=== PATIENT | female | born 1995 | race Caucasian/White ===

== ENCOUNTER 2016-10-21 17:27 | Emergency (ER) | payer SELFPAY ==
[2016-10-21] MEDS ORDERED: SULFA/TRIMETH 800/160 (DS) TAB 1 EA TAB PO ONE (17:47)
--- NOTE | 2016-10-21 17:50 | ED.PDOC ---
History of Present Illness - General Time Seen by Provider: 10/21/16 17:47 Source: patient Exam Limitations: no limitations - History of Present Illness Initial Comments: the patient is a 20-year-old female presenting to the emergency room after having injured her toe while walking her large dog. She sustained a skin tear to the medial most distal aspect of the first digit of the right foot. She is able to move the toe and sensation appears grossly preserved. No other injuries. He was tachycardic on arrival. Estimated blood loss less than 1 or 2 cc. Timing/Duration: momentarily Severity: mild Improving Factors: immobilization Worsening Factors: movement Associated Symptoms: denies symptoms Home Medications: Ambulatory Orders Sulfamethoxazole-Trimethoprim [Bactrim Ds 800-160 mg] 1 tab PO BID #10 tab 10/21 Review of Systems - Review of Systems Constitutional: States: no symptoms reported EENTM: States: no symptoms reported Respiratory: States: no symptoms reported Cardiology: States: no symptoms reported Gastrointestinal/Abdominal: States: no symptoms reported Genitourinary: States: no symptoms reported Musculoskeletal: States: other - toe pain Skin: States: see HPI Neurological: States: no symptoms reported All other Systems: No Change from Baseline Physical Exam - Physical Exam General Appearance: Alert, Comfortable, No apparent distress Eye Exam: bilateral normal Ears, Nose, Throat: normal ENT inspection Neck: non-tender, full range of motion Respiratory: lungs clear, normal breath sounds, no respiratory distress Cardiovascular/Chest: normal peripheral pulses, no edema Peripheral Pulses: radial,right: 2+, radial,left: 2+, dorsalis pedis,right: 2+, dorsalis pedis,left: 2+ Extremity: normal range of motion, no pedal edema, no calf tenderness, normal capillary refill, other - see history of present illness Neurologic: alert, normal mood/affect, oriented x 3 Skin Exam: normal color - with the exception of the skin tear to the toe Progress - Progress Progress: 10/21/16 17:49 the patient is a 20-year-old female presenting secondary to a skin tear to the right first toe. Wound is cleaned with hydrogen peroxide. Steri- Strips were used to tack the skin back down. She was given a dose of Bactrim here. She'll be placed on Bactrim for 5 days. She needs to monitor for any evidence of infection. She needs to follow up with her primary care doctor before the weekend. ER warnings were given for any acute worsening. She appears neurovascularly intact at this time and tendon function appears appropriate. 10/21/16 17:50 Departure - Departure Clinical Impression: Tear of skin of plantar aspect of right foot Qualifiers: Encounter type: initial encounter Qualifier Code: (S91.311A) Laceration without foreign body, right foot, initial encounter Disposition: Discharge to Home or Self Care Condition: Good Diet: regular diet Activity: increase activity as tolerated Prescriptions: Sulfamethoxazole-Trimethoprim [Bactrim Ds 800-160 mg] 1 tab PO BID #10 tab Home Medications: Ambulatory Orders Sulfamethoxazole-Trimethoprim [Bactrim Ds 800-160 mg] 1 tab PO BID #10 tab 10/21 Additional Instructions: the patient is a 20-year-old female presenting secondary to a skin tear to the right first toe. Wound is cleaned with hydrogen peroxide. Steri- Strips were used to tack the skin back down. She was given a dose of Bactrim here. She'll be placed on Bactrim for 5 days. She needs to monitor for any evidence of infection. She needs to follow up with her primary care doctor before the weekend. ER warnings were given for any acute worsening. She appears neurovascularly intact at this time and tendon function appears appropriate.
[2016-10-21 18:41] VITALS: BP 116/82; TEMP 97.2; O2SAT 98
== END 2016-10-21 18:37 | disposition home or self-care (01) ==
LOC: ER 17:27
DX: S91.111A Laceration without foreign body of right great toe without damage to nail, initial encounter (principal); X58.XXXA Exposure to other specified factors, initial encounter; Y93.K1 Activity, walking an animal

== ENCOUNTER 2016-12-11 23:14 | Emergency (ER) | payer MEDICAID, SELFPAY ==
--- NOTE | 2016-12-12 00:14 | ED.PDOC ---
History of Present Illness - General Chief Complaint: Syncope/Near Syncope Stated Complaint: passed out twice Time Seen by Provider: 12/12/16 00:08 Source: patient Exam Limitations: no limitations - History of Present Illness Initial Comments: PT STATES SHE WAS TRYING TO PUT A NOSE RING IN UNSUCCESSFULLY, NO BLEEDING OR PAIN BUT WHEN SHE GOT UP FROM THE BATHROOM COUNTER SHE PASSED OUT. DOES NOT C/O PAIN, WITNESSES STATE SHE PASSED OUT TWICE BUT PT DOES NOT REMEMBER. 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 Denies: chest pain, edema, palpitations Gastrointestinal/Abdominal: Denies: abdominal pain, diarrhea, nausea, vomiting Genitourinary: States: no symptoms reported, other - PT STATES SHE DOESNT THINK SHE'S . Musculoskeletal: States: no symptoms reported Skin: Denies: no symptoms reported, change in color Neurological: Denies: anxiety, headache, numbness, weakness Endocrine: States: no symptoms reported Hematologic/Lymphatic: States: no symptoms reported Past Medical History (General) - Patient Medical History Hx Stroke: No Hx Congestive Heart Failure: No Hx Diabetes: No Hx MRSA: No Surgical History: other - Vaccination History Hx Tetanus, Diphtheria Vaccination: Yes Hx Influenza Vaccination: No Hx Pneumococcal Vaccination: No Immunizations Up to Date: Yes - Social History Hx Tobacco Use: Yes Cigarettes Packs Per Day: 1 Hx Alcohol Use: Yes - Female History Hx Last Menstrual Period: 12/12/16 Family Medical History - Family History Mother Family History: No Known Living Status: Still Living Physical Exam - Physical Exam General Appearance: Alert, No apparent distress Eye Exam: bilateral normal Ears, Nose, Throat: hearing grossly normal, normal ENT inspection Neck: non-tender, full range of motion, supple Respiratory: lungs clear, normal breath sounds, no respiratory distress, no accessory muscle use Cardiovascular/Chest: regular rate, rhythm, no murmur Gastrointestinal/Abdominal: normal bowel sounds, soft, no organomegaly, other - MILD TTP RLQ BUT DOES NOT APPEARS TENDER OVER MCBURNEY'S Back Exam: normal inspection, no CVA tenderness Extremity: normal range of motion, non-tender Neurologic: no motor/sensory deficits, alert, normal mood/affect Skin Exam: normal color, warm/dry Lymphatic: no adenopathy Departure - Departure Disposition: Discharge to Home or Self Care Departure Forms: ED Discharge - Pt. Copy, Patient Portal Self Enrollment Home Medications: Ambulatory Orders NK [NK] 12/11/16
[2016-12-12] MEDS ORDERED: SODIUM CHLORIDE 0.9% 1000ML 1,000 ML IVS ONE (01:35)
[2016-12-12 02:49] VITALS: BP 119/63; TEMP 98; O2SAT 99
== END 2016-12-12 02:55 | disposition home or self-care (01) ==
LOC: ER 23:14
DX: Z33.1 Pregnant state, incidental (principal); R55 Syncope and collapse; O99.331 Smoking (tobacco) complicating pregnancy, first trimester; F17.210 Nicotine dependence, cigarettes, uncomplicated; Z3A.00 Weeks of gestation of pregnancy not specified

== ENCOUNTER 2017-05-28 07:45 | Emergency (ER) | payer MEDICAID ==
[2017-05-28 08:04] VITALS: BP 118/83; TEMP 98.1; O2SAT 97
--- NOTE | 2017-05-28 08:05 | ED.PDOC ---
History of Present Illness - General Chief Complaint: Skin/Abrasion/Tear Stated Complaint: knot both sides chest Time Seen by Provider: 05/28/17 08:03 Source: patient Exam Limitations: no limitations - History of Present Illness Initial Comments: Mikki Coreas 21 y/o female staed for the last few days had been having bilateral pain side of rib.no palpitations no cough no sob.Presently 27 weeks Timing/Duration: other - 5 days ago Severity: moderate Location: torso Improving Factors: nothing Worsening Factors: nothing Associated Symptoms: denies symptoms Allergies/Adverse Reactions: Allergies NO KNOWN ALLERGY Allergy (Verified 05/28/17 08:10) Home Medications: Ambulatory Orders Vit W/ Ferrous Fumara [] 1 tab PO DAILY 05/28/17 Review of Systems - Review of Systems Constitutional: States: no symptoms reported EENTM: States: no symptoms reported Respiratory: States: see HPI Cardiology: States: no symptoms reported Gastrointestinal/Abdominal: States: no symptoms reported Genitourinary: States: no symptoms reported Past Medical History (General) - Patient Medical History Hx Stroke: No Hx Congestive Heart Failure: No Hx Diabetes: No Hx MRSA: No Surgical History: no surgical history - Vaccination History Hx Tetanus, Diphtheria Vaccination: Yes Hx Influenza Vaccination: No Hx Pneumococcal Vaccination: No - Social History Hx Tobacco Use: Yes Hx Alcohol Use: Yes - Activities of Daily Living Patient Lives Alone: No - family - Female History Hx Last Menstrual Period: 12/12/16 Patient : Yes - 27 weeks ega Family Medical History - Family History Mother Family History: No Known Living Status: Still Living Physical Exam - Physical Exam General Appearance: Alert, Comfortable, No apparent distress Eyes, Ears, Nose, Throat Exam: PERRL/EOMI, normal ENT inspection, TMs normal, pharynx normal Neck: non-tender, full range of motion, supple Cardiovascular/Chest: normal peripheral pulses, regular rate, rhythm, no edema, no murmur Respiratory: chest non-tender, lungs clear, other - tenderness lower rib cage bilaterally Gastrointestinal/Abdominal: normal bowel sounds, non tender, soft, other - gravid uterus heart beat-150 Back Exam: normal inspection, no CVA tenderness Extremity: normal range of motion, non-tender Neurologic: alert, normal mood/affect, oriented x 3 Skin Exam: warm/dry, normal color Departure - Departure Clinical Impression: Painful rib, with 27 completed weeks gestation Time of Disposition: 08:20 Disposition: Discharge to Home or Self Care Condition: Good Instructions: Common Discomforts and Bodily Changes During , Managing Symptoms of Home Medications: Ambulatory Orders Vit W/ Ferrous Fumara [] 1 tab PO DAILY 05/28/17 Additional Instructions: Continue with OB care;continue with vitamins Tylenol 500mg po every 6 hours as needed for pain
== END 2017-05-28 08:30 | disposition home or self-care (01) ==
LOC: ER 07:45
DX: O26.92 Pregnancy related conditions, unspecified, second trimester (principal); R07.81 Pleurodynia; Z3A.27 27 weeks gestation of pregnancy; Z87.891 Personal history of nicotine dependence

== ENCOUNTER 2017-10-03 19:37 | Emergency (ER) | payer OTHER ==
[2017-10-03 19:56] VITALS: BP 131/90; TEMP 101.5; O2SAT 95
[2017-10-03] MEDS ORDERED: ACETAMINOPHEN 500 MG TAB PO ONE (20:07)
--- NOTE | 2017-10-03 20:10 | ED.PDOC ---
History of Present Illness - General Chief Complaint: Respiratory Problem Stated Complaint: cough, fever, sore throat, sinus congestion Time Seen by Provider: 10/03/17 20:05 Source: patient Exam Limitations: no limitations - History of Present Illness Comments: THIS PATIENT COMES TO THE ED WITH A 24 HRS HX OF FEVER, NON PRODUCTIVE COUGH, HEADACHE, MALAISE, MYALGIAS. HER TESTED POSITIVE FOR INFLUENZA A. SHE TAKES NO MEDS AND SHE TAKES NO PRESCRIPTION MEDICATIONS. Timing/Duration: yesterday Cough Quality/Degree: dry cough Possible Cause: no prior episodes Worsening Factors: nothing Associated Symptoms: cough, facial pain, fever/chills, headache Respiratory Risk Factors: exposure to illness Allergies/Adverse Reactions: Allergies NO KNOWN ALLERGY Allergy (Verified 05/28/17 08:10) Home Medications: Ambulatory Orders Dextromethorphan-Guaifenesin [Delsym Cough + Chest Celestine 5-100 mg/5Ml] 10 ml PO BID #100 liq 10/03/17 Fexofenadine-Pseudoephedrine [Sharyn-D 12 Hour Allergy 60-120 mg] 1 tab PO BID #10 tab 10/03/17 Oseltamivir Capsule [Tamiflu] 75 mg PO BID #10 cap 10/03/17 Review of Systems - Review of Systems Constitutional: States: chills, fever, malaise EENTM: States: no symptoms reported, nose congestion, mouth pain Respiratory: States: cough, short of breath Cardiology: States: palpitations Gastrointestinal/Abdominal: States: no symptoms reported Genitourinary: States: no symptoms reported Musculoskeletal: States: muscle pain Skin: States: no symptoms reported Neurological: States: no symptoms reported Endocrine: States: no symptoms reported Hematologic/Lymphatic: States: no symptoms reported All other Systems: Reviewed and Negative Past Medical History (General) - Patient Medical History Hx Stroke: No Hx Congestive Heart Failure: No Hx Hypertension: No Hx Diabetes: No Hx MRSA: No Surgical History: no surgical history - Vaccination History Hx Tetanus, Diphtheria Vaccination: No Hx Influenza Vaccination: Yes Hx Pneumococcal Vaccination: No Immunizations Up to Date: Yes - Social History Hx Tobacco Use: Yes Hx Alcohol Use: No - Female History Hx Last Menstrual Period: 12/12/16 Patient : No Family Medical History - Family History Mother Family History: No Known Living Status: Still Living Physical Exam - Physical Exam General Appearance: Alert, Anxious Eye Exam: bilateral normal ENT Exam: nasal congestion, nasal drainage Neck: non-tender, full range of motion, supple, normal inspection Respiratory: chest non-tender, rhonchi Cardiovascular/Chest: normal peripheral pulses, no edema, no gallop, no JVD, no murmur, tachycardia Gastrointestinal/Abdominal: normal bowel sounds, non tender, soft, no organomegaly, no pulsatile mass Extremity: normal range of motion, non-tender, normal inspection Neurologic: alert, normal mood/affect, oriented x 3 Skin Exam: normal color Lymphatic: no adenopathy Progress - Results/Orders Results/Orders: THE LB IS REPORTED: INFLUENZA A IS POSITIVE AND RSS WAS NEGATIVE. Departure - Departure Clinical Impression: Influenza Time of Disposition: 20:21 Disposition: Discharge to Home or Self Care Condition: Fair Departure Forms: ED Discharge - Pt. Copy, Patient Portal Self Enrollment Instructions: Influenza Diet: resume usual diet Activity: increase activity as tolerated Prescriptions: Dextromethorphan-Guaifenesin [Delsym Cough + Chest Celestine 5-100 mg/5Ml] 10 ml PO BID #100 liq Fexofenadine-Pseudoephedrine [Sharyn-D 12 Hour Allergy 60-120 mg] 1 tab PO BID #10 tab Oseltamivir Capsule [Tamiflu] 75 mg PO BID #10 cap Home Medications: Ambulatory Orders Dextromethorphan-Guaifenesin [Delsym Cough + Chest Celestine 5-100 mg/5Ml] 10 ml PO BID #100 liq 10/03/17 Fexofenadine-Pseudoephedrine [Sharyn-D 12 Hour Allergy 60-120 mg] 1 tab PO BID #10 tab 10/03/17 Oseltamivir Capsule [Tamiflu] 75 mg PO BID #10 cap 10/03/17
== END 2017-10-03 20:33 | disposition home or self-care (01) ==
LOC: ER 19:37
DX: J11.1 Influenza due to unidentified influenza virus with other respiratory manifestations (principal); Z87.891 Personal history of nicotine dependence

== ENCOUNTER 2019-02-05 14:40 | Emergency (ER) | payer SELFPAY ==
[2019-02-05] MEDS ORDERED: LIDOCAINE 1% 10 ML VIAL INJ ONE (14:54)
[2019-02-05] MEDS ORDERED: CHLORHEXIDINE GLUCONATE 4 % 15 ML UD TOP ONE (14:54)
[2019-02-05] MEDS ORDERED: POVIDONE IODINE 10 % 15 ML UD TOP ONE (14:56)
--- NOTE | 2019-02-05 15:25 | RAD ---
EXAM DESCRIPTION: Toes,Right CLINICAL HISTORY: laceration to right third toe-stepped on glass COMPARISON: None. IMPRESSION: 3 views of the bilateral toes shows no acute fracture, focal bone destruction, or joint dislocation. No radiopaque foreign body seen in the soft tissues. Electronically signed by: Davidson Govea MD 02/05/2019 3:22 PM CDT
--- NOTE | 2019-02-05 15:42 | ED.PDOC ---
History of Present Illness - General Chief Complaint: Laceration Stated Complaint: laceration to toe Time Seen by Provider: 02/05/19 15:39 Source: patient Exam Limitations: no limitations - History of Present Illness Initial Comments: patient stepped on broken glass at home prior to arrival suffering a cut to her right middle toe. She had last tetanus 2 years ago with her last . She is otherwise healthy and has no medical problems and no other acute complaints. Timing/Duration: just prior to arrival Severity: mild Location: feet Improving Factors: nothing Worsening Factors: nothing Associated Symptoms: denies symptoms Allergies/Adverse Reactions: Allergies NO KNOWN ALLERGY Allergy (Verified 05/28/17 08:10) Home Medications: Ambulatory Orders NK 02/05/19 Review of Systems - Review of Systems Constitutional: States: no symptoms reported EENTM: States: no symptoms reported Respiratory: States: no symptoms reported Cardiology: States: no symptoms reported Gastrointestinal/Abdominal: States: no symptoms reported Skin: States: see HPI Past Medical History (General) - Patient Medical History Hx Stroke: No Hx Congestive Heart Failure: No Hx Hypertension: No Hx Diabetes: No Hx MRSA: No Surgical History: tonsillectomy - Vaccination History Hx Tetanus, Diphtheria Vaccination: No - unknown Hx Influenza Vaccination: No Hx Pneumococcal Vaccination: No - Social History Hx Tobacco Use: Yes Hx Alcohol Use: No - Female History Patient is a Female of Child Bearing Age (10 -59 yrs old): Yes - Irregular-has a Nexplanon implant Hx Last Menstrual Period: 12/12/16 Patient : No Hx Gestational Age: 27 Family Medical History - Family History Mother Family History: No Known Living Status: Still Living Physical Exam - Physical Exam General Appearance: Alert, Comfortable Eyes, Ears, Nose, Throat Exam: PERRL/EOMI Cardiovascular/Chest: normal peripheral pulses, regular rate, rhythm, no edema, no murmur Respiratory: chest non-tender, lungs clear, normal breath sounds Neurologic: alert, oriented x 3 Skin Exam: other - 2 cm laceration through subcutaneous tissue on middle toe plantar side Progress - Results/Orders Results/Orders: Patient Name: VIKTORIA ZAZUETA Gender: Female Date of : 1995 Referring Physician: LEXIE PRINCE Organization: 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 IMPRESSION: 3 views of the bilateral toes shows no acute fracture, focal bone destruction, or joint dislocation. No radiopaque foreign body seen in the soft tissues Procedures - Laceration/Wound Repair Right Toe Wound Length (cm): 2 Wound's Depth, Shape: superficial Wound Explored: no foreign body removed Irrigated w/ Saline (cc's): 50 Betadine Prep?: Yes Anesthesia: 1% Lidocaine Volume Anesthetic (cc's): 1.5 - 1 cc in digital block/.5 at site Wound Debrided: moderate Wound Repaired With: sutures Suture Size/Type: 4:0, nylon Number of Sutures: 3 Layer Closure?: No Departure - Departure Clinical Impression: Laceration Disposition: Discharge to Home or Self Care Condition: Good Departure Forms: ED Discharge - Pt. Copy, Patient Portal Self Enrollment Home Medications: Ambulatory Orders NK 02/05/19 Additional Instructions: follow up in clinic in 7-10 days for suture removal. Do not soak sutures but clean with warm soapy water BID. Return to ER/return to clinic for erythema, purulence, or temp >100.5.
[2019-02-05 15:57] VITALS: BP 122/73; TEMP 98.6; O2SAT 97
== END 2019-02-05 15:50 | disposition home or self-care (01) ==
LOC: ER 14:40
DX: S91.114A Laceration without foreign body of right lesser toe(s) without damage to nail, initial encounter (principal); W25.XXXA Contact with sharp glass, initial encounter; Y92.009 Unspecified place in unspecified non-institutional (private) residence as the place of occurrence of the external cause; Z87.891 Personal history of nicotine dependence

== ENCOUNTER 2020-03-12 14:39 | Emergency (ER) | payer OTHER ==
[2020-03-12] MEDS ORDERED: SODIUM CHLORIDE 0.9% 1000ML 1,000 ML IVS ONE (15:07)
[2020-03-12] MEDS ORDERED: ONDANSETRON INJ 4 MG/2 ML VIAL IV ONE (15:07)
[2020-03-12] MEDS ORDERED: DICYCLOMINE HCL INJ 20 MG/2 ML AMP IM ONE (15:07)
[2020-03-12] MEDS ORDERED: SODIUM CHLORIDE 0.9% (FLUSH) 10 ML SYG IV PRN (15:07)
--- NOTE | 2020-03-12 17:17 | ED.PDOC ---
History of Present Illness - General Chief Complaint: GI Problem Stated Complaint: N/V/D, abd pain, weakness Time Seen by Provider: 03/12/20 15:07 Information Source: patient, RN notes reviewed, Vital Signs reviewed Exam Limitations: no limitations - History of Present Illness Initial Comments: Patient is a 24-year-old white female who presents with complaints of abdominal pain, nausea, vomiting and diarrhea starting yesterday. It is constant and getting worse. She denies any hematemesis or hematochezia. Eating or drinking makes it worse. Nothing makes it better. It is severe in intensity. The pain is throbbing/cramping in nature. The pain is nonradiating. Abdominal Pain Onset Location: generalized abdomen Pain Radiation: no radiation Quality: severe, cramping, throbbing Timing/Duration: 7-24 hours Improving Factors: nothing Worsening Factors: eating Associated Symptoms: diarrhea, nausea/vomiting Review of Systems - Review of Systems Constitutional: States: see HPI, malaise, weakness. Denies: chills, fever EENTM: States: no symptoms reported Respiratory: States: no symptoms reported Cardiology: States: no symptoms reported. Denies: chest pain, palpitations, syncope Gastrointestinal/Abdominal: States: abdominal pain, diarrhea, nausea, vomiting Genitourinary: States: no symptoms reported Musculoskeletal: States: no symptoms reported. Denies: back pain Skin: States: no symptoms reported. Denies: change in color, rash Neurological: States: no symptoms reported Endocrine: States: no symptoms reported Hematologic/Lymphatic: States: no symptoms reported All other Systems: Reviewed and Negative Past Medical History (General) - Patient Medical History Hx Stroke: No Hx of COPD: No Hx Cardiac Disorders: No Hx Congestive Heart Failure: No Hx Hypertension: No Hx Diabetes: No Hx Cancer: No Hx MRSA: No Surgical History: tonsillectomy - Vaccination History Hx Tetanus, Diphtheria Vaccination: No Hx Influenza Vaccination: No Hx Pneumococcal Vaccination: No Immunizations Up to Date: No - Social History Hx Tobacco Use: Yes Hx Alcohol Use: Yes Hx Substance Use: No Hx Substance Use Treatment: No Hx Depression: No - Female History Patient is a Female of Child Bearing Age (10 -59 yrs old): Yes Hx Last Menstrual Period: 12/12/16 Patient : No - Denies Hx Gestational Age: 27 Family Medical History - Family History Mother Family History: No Known Living Status: Still Living Hx Family;Other: Maternal Grandmother - throat cancer Physical Exam - Physical Exam General Appearance: Alert, Anxious, Obvious distress, Well Developed, Well Groomed, Well Nourished Eyes, Ears, Nose, Throat Exam: PERRL/EOMI, normal ENT inspection, other - Dry mucous membranes Neck: non-tender, full range of motion, supple, normal inspection Respiratory: chest non-tender, lungs clear, normal breath sounds, no respiratory distress, no accessory muscle use Cardiovascular/Chest: normal peripheral pulses, regular rate, rhythm, no edema, no gallop Peripheral Pulses: No deficit Gastrointestinal/Abdominal: normal bowel sounds, soft, no organomegaly, no pulsatile mass, other - Generalized discomfort to palpation Back Exam: normal inspection, no CVA tenderness, no vertebral tenderness Extremity: normal range of motion, non-tender, normal inspection, no pedal edema, no calf tenderness 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 03/12/20 17:25 Patient is markedly improved after IV fluids and IM Bentyl and IV Zofran. Plan on discharge home with a prescription for Bentyl and Zofran. I discussed this plan of care with the patient and she voices understanding and agreement with the plan of care. Steve Reaves M.D. #[id number] - Results/Orders Results/Orders: 03/12/20 15:07 Sodium Chloride 0.9% (Flush) [Saline Flush Syringe] 10 ml IV PRN PRN URINALYSIS Stat Laboratory Results - last 24 hr 03/12/20 03/12/20 15:26 15:26 WBC 6.2 RBC 4.98 Hgb 14.9 Hct 44.4 MCV 89.1 MCH 30.0 MCHC 33.6 RDW 13.4 Plt Count 159 MPV 11.1 H Absolute Neuts (auto) 4.20 Absolute Lymphs (auto) 1.60 Absolute Monos (auto) 0.30 Absolute Eos (auto) 0.10 Absolute Basos (auto) 0.10 Neutrophils % 68.3 Lymphocytes % 25.5 Monocytes % 4.2 Eosinophils % 1.0 Basophils % 1.0 Sodium 138 Potassium 4.1 Chloride 107 Carbon Dioxide 23 Anion Gap 12.1 BUN 11 Creatinine 0.77 BUN/Creatinine Ratio 14.3 Random Glucose 94 Serum Osmolality 274.8 L Calcium 9.5 Total Bilirubin 1.3 H Direct Bilirubin 0.2 Indirect Bilirubin 1.1 H AST 20 ALT 13 Alkaline Phosphatase 56 Serum Total Protein 7.6 Albumin 4.4 Lipase 20 L Vital Signs 03/12/20 03/12/20 14:40 15:03 Temperature 9.8 F L Pulse Rate [ 97 H 97 H Pulse ox] Respiratory 16 Rate Blood Pressure 134/97 [R brachial] O2 Sat by Pulse 96 Oximetry Departure - Departure Clinical Impression: Food poisoning, Dehydration Time of Disposition: 17:26 Disposition: Discharge to Home or Self Care Condition: Good Departure Forms: ED Discharge - Pt. Copy, ED Discharge - Work Release, Patient Portal Self Enrollment Instructions: Food Poisoning (DC) Diet: full liquid diet Activity: increase activity as tolerated Prescriptions: Dicyclomine HCl [Bentyl] 20 mg PO Q6HR #12 tab Ondansetron [Ondansetron Odt] 4 mg PO Q6H #12 tab Home Medications: Ambulatory Orders Dicyclomine HCl [Bentyl] 20 mg PO Q6HR #12 tab 03/12/20 Ondansetron [Ondansetron Odt] 4 mg PO Q6H #12 tab 03/12/20
[2020-03-12 17:53] VITALS: BP 112/86; TEMP 98.7; O2SAT 98
== END 2020-03-12 17:53 | disposition home or self-care (01) ==
LOC: ER 14:39
DX: A05.9 Bacterial foodborne intoxication, unspecified (principal); E86.0 Dehydration; F17.200 Nicotine dependence, unspecified, uncomplicated; R11.2 Nausea with vomiting, unspecified
CPT/HCPCS: 36415; 80048; 80076; 83690; 85025; A4216; J0500; J2405; J7030